=== PATIENT | female | born 1995 | race Caucasian/White ===

== ENCOUNTER → 2021-05-12 | Outpatient (CLI) | payer BC ==
[2021-05-12 17:48] LABS: BASO # 0.1 10^3/uL (0.0-0.2); BASO % 0.6 % (0.0-1.0); EOS # 0.1 10^3/uL (0.0-0.5); EOS % 0.9 % (0.0-3.0); HEMATOCRIT 37.3 % (36.0-47.0); HEMOGLOBIN 12.6 g/dl (12.0-15.5); LYMPH # 2.1 10^3/uL (1.5-5.0); MEAN CORPUSCULAR HEMOGLOBIN 29.9 pg (27.0-33.0); MEAN CORPUSCULAR HGB CONC 33.8 g/dl (32.0-36.5); MEAN CORPUSCULAR VOLUME 88.6 fl (80.0-96.0); MONO # 0.5 10^3/uL (0.0-0.8); MONO % 6.4 % (2.0-8.0); NEUTROPHILS # 5.6 10^3/uL (1.5-8.5); NEUTROPHILS % 66.9 % (36.0-66.0); PLATELET COUNT, AUTOMATED 199 10^3/uL (150-450); RED BLOOD COUNT 4.21 10^6/uL (4.00-5.40); WHITE BLOOD COUNT 8.4 10^3/uL (4.0-10.0)
[2021-05-12 18:31] LABS: HIV 1&2 SCREEN CENTAUR NEGATIVE (NEGATIVE)
[2021-05-12 18:51] LABS: GC DNA AMPLIFICATION NEGATIVE (NEGATIVE)
== END ==
LOC: M PLALAB 14:16
PROVIDERS: ATTEND Obstetrics & Gynecology
DX: Z34.90 Encounter for supervision of normal pregnancy, unspecified, unspecified trimester (principal); Z3A.00 Weeks of gestation of pregnancy not specified

== ENCOUNTER → 2021-06-28 | Outpatient (CLI) | payer BC, MEDICARE | LOC: M WHC 14:46 | PROVIDERS: ATTEND Obstetrics & Gynecology | DX: Z34.02 Encounter for supervision of normal first pregnancy, second trimester (principal); Z3A.19 19 weeks gestation of pregnancy ==

== ENCOUNTER → 2021-07-17 | Outpatient (REF) | payer BC, MEDICAID | LOC: M PLALAB 11:11 | PROVIDERS: ATTEND Advanced Practice Midwife | DX: O26.899 Other specified pregnancy related conditions, unspecified trimester (principal); Z3A.00 Weeks of gestation of pregnancy not specified ==

== ENCOUNTER → 2021-08-04 | Outpatient (CLI) | payer BC, MEDICAID | LOC: M WHC 14:47 | PROVIDERS: ATTEND Advanced Practice Midwife | DX: Z36.89 Encounter for other specified antenatal screening (principal); Z3A.24 24 weeks gestation of pregnancy ==

== ENCOUNTER → 2021-08-30 | Outpatient (CLI) | payer BC, MEDICAID ==
[2021-08-30 13:11] LABS: HEMATOCRIT 34.5 % (36.0-47.0); HEMOGLOBIN 11.6 g/dl (12.0-15.5); MEAN CORPUSCULAR HEMOGLOBIN 32.3 pg (27.0-33.0); MEAN CORPUSCULAR HGB CONC 33.6 g/dl (32.0-36.5); MEAN CORPUSCULAR VOLUME 96.1 fl (80.0-96.0); PLATELET COUNT, AUTOMATED 213 10^3/uL (150-450); RED BLOOD COUNT 3.59 10^6/uL (4.00-5.40); WHITE BLOOD COUNT 10.3 10^3/uL (4.0-10.0)
== END ==
LOC: M PLALAB 10:50
PROVIDERS: ATTEND Advanced Practice Midwife
DX: Z36.89 Encounter for other specified antenatal screening (principal)

== ENCOUNTER → 2021-09-12 | Outpatient (CLI) | payer BC, MEDICAID | LOC: M PLALAB 08:37 | PROVIDERS: ATTEND Advanced Practice Midwife | DX: Z36.89 Encounter for other specified antenatal screening (principal) ==

== ENCOUNTER → 2021-10-24 | Outpatient (REF) | payer MEDICAID, BC | LOC: M SFHCWAGY 16:59 | PROVIDERS: ATTEND Obstetrics & Gynecology | DX: Z36.85 Encounter for antenatal screening for Streptococcus B (principal) ==

== ENCOUNTER 2021-11-19 03:38 | Inpatient (IN) | payer BC, MEDICAID ==
[~2021-11-19] VITALS: Ht 160 cm; Wt 73.1 kg
[2021-11-19] VITALS (28 sets, daily range): BP systolic 114–158; BP diastolic 58–94
[2021-11-19] MEDS ORDERED: PRENTAB9 PO (03:59)
[2021-11-19] MEDS ORDERED: PENICILLIN G POTASSIUM IV 5 MU in D5W MINI-BAG PLUS 100 ML IV STA (06:15)
[2021-11-19 06:51] LABS: HEMATOCRIT 37.7 % (36.0-47.0); HEMOGLOBIN 12.2 g/dl (12.0-15.5); MEAN CORPUSCULAR HEMOGLOBIN 27.9 pg (27.0-33.0); MEAN CORPUSCULAR HGB CONC 32.4 g/dl (32.0-36.5); MEAN CORPUSCULAR VOLUME 86.3 fl (80.0-96.0); PLATELET COUNT, AUTOMATED 196 10^3/uL (150-450); RED BLOOD COUNT 4.37 10^6/uL (4.00-5.40); WHITE BLOOD COUNT 15.2 10^3/uL (4.0-10.0)
[2021-11-19] MEDS: LR 1,000 ML IV SCH ×4 (09:02→19:45)
[2021-11-19] MEDS ORDERED: PROMETHAZINE 25MG/ML 1ML VIAL IV PRN (10:05)
[2021-11-19] MEDS ORDERED: BUTORPHANOL 2 MG/ML INJ (J0595) IV ONE (10:05)
[2021-11-19] MEDS: PENICILLIN G POTASSIUM IV 2.5 MU in IV 1 EA IV SCH ×3 (13:12→20:50)
[2021-11-19] MEDS ORDERED: FENTANYL 2MCG/ML ROPIVACAINE 0.2% IN 0.9% NACL 100ML IVBAG As Ordered ONE (14:14)
[2021-11-19] MEDS ORDERED: diphenhydrAMINE 50MG/ML VIAL (J1200) IV PRN (14:15)
[2021-11-19] MEDS ORDERED: NALOXONE INJ 0.4MG/1ML VIAL (J2310 PER 1MG) IV PRN (14:15)
[2021-11-19] MEDS ORDERED: ONDANSETRON 4MG 2ML VIAL IV PRN (14:15)
[2021-11-19] MEDS ORDERED: ePHEDrine SULFATE 25 MG/5 ML(5MG/ML) SYRINGE IVP PRN (14:15)
[2021-11-19] MEDS ORDERED: EPIDURAL/PCA KEYS XX PRN (14:15)
[2021-11-19] MEDS ORDERED: LR 500 ML IV PRN (14:15)
[2021-11-19] MEDS: FENTANYL/ROPIVACAINE/NACL BAG 100 ML EPIDURAL SCH ×2 (14:45→22:35)
[2021-11-19] MEDS ORDERED: AMPICILLIN SOD/SULBACTAM SOD 3 GM in D5W MINI-BAG PLUS 100 ML IV ONE (20:05)
[2021-11-19] MEDS ORDERED: ACETAMINOPHEN 500 MG TAB PO ONE (20:05)
[2021-11-19] MEDS ORDERED: OXYTOCIN DRIP 30 UNITS in IV 1 EA IV SCH (20:25)
[2021-11-19] MEDS ORDERED: OXYTOCIN DRIP 30 UNITS in IV 1 EA IV STA (20:43)
[2021-11-19] MEDS ORDERED: OXYTOCIN 30 UNITS IN 0.9% NaCl 500ML IV BAG (J2590) As Ordered ONE (20:43)
[2021-11-20 00:05] LABS: CORD GAS ABE V -5.9; CORD GAS HCO3 V 20.4 MEQ/L; CORD GAS O2 SAT V 73.1 %; CORD GAS PCO2 V 42.8 mmHg; CORD GAS PH V 7.295 UNITS; CORD GAS PO2 V 31.4 mmHg; CORD GAS SBC V 19.1 MEQ/L; CORD GAS TCO2 V 21.7 MEQ/L
[2021-11-20 00:07] VITALS: BP 117/68
[2021-11-20 00:08] LABS: CORD GAS ABE A -7.5; CORD GAS HCO3 A 19.1 MEQ/L; CORD GAS O2 SAT A 80.7 %; CORD GAS PCO2 A 42.3 mmHg; CORD GAS PH A 7.272 UNITS; CORD GAS SBC A 18.1 MEQ/L; CORD GAS TCO2 A 20.4 MEQ/L
[2021-11-20 00:13] VITALS: BP 124/69
[2021-11-20 00:40] VITALS: BP 125/73
[2021-11-20] MEDS ORDERED: MOM 30ML SUSPENSION UDC PO PRN (00:40)
[2021-11-20] MEDS ORDERED: DIBUCAINE 1% OINTMENT 30GM TOP PRN (00:40)
[2021-11-20] MEDS ORDERED: RHOGAM 300 MCG (1500 IU) INJ (J2790) IM SCH (00:40)
[2021-11-20] MEDS ORDERED: METHYLERGONOVINE MALEATE 0.2 MG TAB PO PRN (00:40)
[2021-11-20] MEDS ORDERED: OXYTOCIN DRIP 30 UNITS in IV 1 EA IV SCH (00:40)
[2021-11-20] MEDS ORDERED: ACETAMINOPHEN 500 MG TAB PO PRN (00:40)
[2021-11-20] MEDS ORDERED: IBUPROFEN 600MG TAB PO PRN (00:40)
[2021-11-20] MEDS ORDERED: ACETAMINOPHEN TAB 650MG DOSE (2X325MG) PO PRN (00:40)
[2021-11-20] MEDS ORDERED: DOCUSATE SODIUM 100MG CAPSULE PO PRN (00:40)
[2021-11-20] MEDS ORDERED: ANUSOL HC CREAM 30GM TOP PRN (00:40)
[2021-11-20 02:00] VITALS: BP 127/73
[2021-11-20 06:00] VITALS: BP 118/55
[2021-11-20] MEDS: PRENATAL VITAMINS CHEWABLE TABLET PO SCH (09:38)
[2021-11-20 17:52] VITALS: BP 109/60
[2021-11-21 06:00] VITALS: BP 112/62
[2021-11-21] MEDS: PRENATAL VITAMINS CHEWABLE TABLET PO SCH (08:06)
[2021-11-21 19:40] VITALS: BP 118/69
[2021-11-22 06:00] VITALS: BP 110/61
[2021-11-22] MEDS: IBUPROFEN 800 MG TAB PO PRN ×2 (06:26→16:16)
[2021-11-22] MEDS: PRENATAL VITAMINS CHEWABLE TABLET PO SCH (08:56)
[2021-11-22] MEDS ORDERED: MEASLES,MUMPS,RUBELLA VACCINE INJ (MMR-II) (90707) SC.IMMUN ONE (09:00)
== END 2021-11-22 18:00 | disposition home or self-care (01) | DRG 560 ==
LOC: M LDO 03:38 → M LDI 06:14 → M OBS 11-20 02:08
PROVIDERS: ADMIT Specialist; ATTEND Obstetrics & Gynecology
PROC: 10E0XZZ Delivery of Products of Conception, External Approach (ICD-10-PCS; principal; 2021-11-19)
PROC: 0HQ9XZZ Repair Perineum Skin, External Approach (ICD-10-PCS; 2021-11-19)
DX: O99.824 Streptococcus B carrier state complicating childbirth (principal); O41.1230 Chorioamnionitis, third trimester, not applicable or unspecified; Z3A.40 40 weeks gestation of pregnancy; Z37.0 Single live birth; O70.0 First degree perineal laceration during delivery

== ENCOUNTER → 2021-11-30 | Outpatient (REF) | payer BC, MEDICAID ==
[~2021-11-30] MED LIST: PRENTAB9 PO
== END ==
LOC: M SFHCDERM 16:49
PROVIDERS: ATTEND Physician Assistant
DX: D22.4 Melanocytic nevi of scalp and neck (principal)

== ENCOUNTER → 2022-01-09 | Outpatient (REF) | payer BC, MEDICAID | LOC: M SFHCDERM 17:22 | PROVIDERS: ATTEND Physician Assistant | DX: D23.5 Other benign neoplasm of skin of trunk (principal) ==

== ENCOUNTER → 2023-06-20 | Outpatient (CLI) | payer BC, MEDICAID ==
[2023-06-20 14:32] LABS: HEMATOCRIT 40.4 % (36.0-47.0); HEMOGLOBIN 13.7 g/dl (12.0-15.5); MEAN CORPUSCULAR HEMOGLOBIN 30.9 pg (27.0-33.0); MEAN CORPUSCULAR HGB CONC 33.9 g/dl (32.0-36.5); PLATELET COUNT, AUTOMATED 181 10^3/uL (150-450); RED BLOOD COUNT 4.44 10^6/uL (4.00-5.40); WHITE BLOOD COUNT 5.8 10^3/uL (4.0-10.0)
[2023-06-20 15:34] LABS: HIV 1&2 SCREEN NEGATIVE (NEGATIVE)
[2023-06-20 15:42] LABS: HEPATITIS C VIRUS ABY INDEX < 0.02 INDEX (<0.8)
[2023-06-20 15:55] LABS: GC DNA AMPLIFICATION NEGATIVE (NEGATIVE)
== END ==
LOC: M PLALAB 10:12
PROVIDERS: ATTEND Advanced Practice Midwife
DX: Z34.81 Encounter for supervision of other normal pregnancy, first trimester (principal)

== ENCOUNTER → 2023-08-19 | Outpatient (CLI) | payer BC, MEDICAID | LOC: M WHC 09:15 | PROVIDERS: ATTEND Advanced Practice Midwife | DX: Z34.82 Encounter for supervision of other normal pregnancy, second trimester (principal) ==

== ENCOUNTER → 2023-09-23 | Outpatient (CLI) | payer BC, MEDICAID ==
[2023-09-23 15:42] LABS: GLUCOSE CHALLENGE TEST 1 HOUR 89 MG/DL (LESS THAN 140); HEMOGLOBIN 11.3 g/dl (12.0-15.5); MEAN CORPUSCULAR HEMOGLOBIN 32.4 pg (27.0-33.0); MEAN CORPUSCULAR HGB CONC 33.2 g/dl (32.0-36.5); MEAN CORPUSCULAR VOLUME 97.4 fl (80.0-96.0); PLATELET COUNT, AUTOMATED 213 10^3/uL (150-450); RED BLOOD COUNT 3.49 10^6/uL (4.00-5.40); WHITE BLOOD COUNT 9.4 10^3/uL (4.0-10.0)
== END ==
LOC: M PLALAB 10:44
PROVIDERS: ATTEND Obstetrics & Gynecology
DX: Z34.92 Encounter for supervision of normal pregnancy, unspecified, second trimester (principal); Z3A.23 23 weeks gestation of pregnancy

== ENCOUNTER → 2023-12-17 | Outpatient (REF) | payer MEDICAID | LOC: M PLALAB 15:25 | PROVIDERS: ATTEND Obstetrics & Gynecology | DX: Z36.89 Encounter for other specified antenatal screening (principal); Z3A.36 36 weeks gestation of pregnancy ==

== ENCOUNTER → 2024-06-29 | Outpatient (REF) | payer OTHER | LOC: M PLALAB 13:05 | PROVIDERS: ATTEND Obstetrics & Gynecology | DX: Z01.419 Encounter for gynecological examination (general) (routine) without abnormal findings (principal) ==